=== PATIENT | male | born 1970 | race Caucasian/White ===

== ENCOUNTER 2023-10-27 20:54 | Inpatient (IN) | payer OTHER, SELFPAY ==
[2023-10-27 18:23] VITALS: BP 139/98
[2023-10-27 18:34] VITALS: BP 163/98
--- NOTE | 2023-10-27 18:44 | ED.GENMED ---
History of Present Illness
General
Chief Complaint: Alcohol Problem
Source: patient
Time Seen by Provider: 10/27/23 18:34
History of Present Illness
History of Present Illness:
53yoM with a history of alcohol abuse presenting with his significant other for evaluation of alcohol intoxication. Patient was sober for 1 year up until about a week ago when he started drinking again. He reports drinking a 750ml bottle of vodka
daily for the past week. Last drink was at 2pm this afternoon. He would like to stop drinking. He has a history of withdrawal seizures in the past. He currently reports mild withdrawal symptoms including nausea and a headache. He does not have
health insurance and his significant other did not know what to do so brought him to the ED for evaluation.
Past History
Past History
ED Past Medical History: Psychiatric
ED Past Surgical History: Other (Hernia)
Patient has exhibited threatening behavior?: No
PSI?: No
Social History
Tobacco: Non-smoker
Alcohol: Daily
Drug: None
Personal:
Living: with family
Phy Exam
General Physical Exam
General Presentation: well appearing and no apparent distress
General age: appears stated age
General Skin: warm and dry
General Mental: appears intoxicated
Cardiovascular Exam
Cardiovascular Exam: regular rate/rhythm and no murmur
Pulmonary Exam
Pulmonary Exam: lungs clear, no respiratory distress, no crackles and no wheezing
Gastrointestinal Exam
Gastrointestinal Exam: non tender, soft and non distended
[place] Coma Scale
Eye Opening: Spontaneous
Verbal Response: Oriented
Motor Response: Obeys Commands
GCS Total Score: 15
Skin Exam
Skin Exam: normal color and warm/dry
Scores
Withdrawal Assessment of Alcohol
Withdrawal Assessment Completed?: Yes
Nausea and Vomiting: Mild nausea with no vomiting
Tactile Disturbances: None
Tremor: No tremor
Auditory Disturbances: Not present
Paroxysmal Sweats: No sweat visible
Visual Disturbances: Not present
Anxiety: Mild anxiety
Headache, Fullness in Head: Moderate
Agitation: Moderately fidgety and restless
Orientation and clouding of sensorium: Oriented and can do serial additions
Total CIWA Score: 9
Alcohol Withdrawal Medication Recommendation: Equal to MSAS Score 5-7. Lorazepam 1mg IV or PO NOW & re-assess q2hrs
Course
Orders/Labs/Results
Orders:
Orders
10/27/23 18:40
Electrocardiogram (*1) Urgent
Reason for Study: Other
Other Reason for Exam: Alcohol intoxication
Cardiac Monitoring- Treatment ONCE
EKG- Treatment ONCE
0.9% Sodium Chloride 1000 ml [Nss] 1,000 ml IV BOLUS
10/27/23 18:44
Alcohol Urgent
Complete Blood Count/With Diff Urgent
Comprehensive Metabolic Panel Urgent
Magnesium Urgent
10/27/23 19:54
Lorazepam [Ativan] 2 mg IV NOW STA
10/27/23 20:23
Lorazepam [Ativan] 2 mg IV NOW STA
10/27/23 20:41
Admit/Transfer Patient As Directed
Co-Sign Provider:
Level of Care: Inpatient admission
Assign to:: Telemetry
Physician / Group: [email or web address]
Diagnosis: Agitation, acute ETOH intoxication, Hi risk for ETOH WDS,acute ETOH hepati
Reason for Telemetry: Other
Other Reason for Telemetry: Hi risk for ETOH WDS
Date to Stop Telemetry: 10/29/23
Time to Stop Telemetry: 11:00
Reason for Hospitalization: Agitation, acute ETOH intoxication, Hi risk for ETOH WDS,acute ETOH hepatitis
Expected length of stay greater than two midnights?: Yes
ELOS- Estimated Length of Stay in days: 3
I certify the patient meets the requirements for IP care: Yes
10/29/23 11:00
DC Protocol for Telemetry ONCE
Abnormal Lab Results
10/27/23
18:44
Hgb 18.1 H g/dL
(13.0-18.0)
MCH 32.5 H pg
(27.0-31.0)
MCHC 38.1 H g/dL
(33.0-37.0)
Immature Gran % 0.6 H %
(0-0.5)
Chloride 96 L mmol/L
(98-107)
Glucose 121 H mg/dl
(70-99)
AST 127 H U/L
(17-59)
ALT 62 H U/L
(0-50)
Albumin 5.1 H g/dl
(3.5-5.0)
10/27/23 18:44
10/27/23 18:44
Vital Signs
Initial and Last Documented VS:
Initial Vital Signs
Temp Pulse Resp BP Pulse Ox
98.6 F 111 18 139/98 93
10/27/23 18:23 10/27/23 18:23 10/27/23 18:23 10/27/23 18:23 10/27/23 18:23
Last Documented Vital Signs
Temp Pulse Resp BP Pulse Ox
98.6 F 81 22 155/92 94
10/27/23 18:23 10/27/23 19:15 10/27/23 19:15 10/27/23 19:00 10/27/23 19:00
MDM/Problems Addressed
Differential Diagnosis Includes:
53yoM here for an alcohol issue. Has been drinking heavily x 1 week. Last drink 2pm this afternoon. Hx of withdrawal seizures. He is clinically intoxicated during initial exam. He is afebrile and hemodynamically stable. Differential diagnosis
includes but is not limited to: alcohol withdrawal, alcohol intoxication, dehydration, electrolyte abnormality
Initial ED plan: Check CBC, CMP, magnesium, ETOH, and EKG. IV fluid bolus.
*EKG
Interpreted by ED Provider?: Yes
EKG Intrepretation Date: 10/27/23
EKG Intrepretation Time: 19:22
Heart Rate: 87
Rate: normal
Rhythm: sinus
Polaris: normal axis
Interval: normal interval
QRS Pattern: normal QRS
Ischemia: no ischemia
*Critical Care Note
Total Time (30-74mins, 75-104mins- exclusive of procedures): Not Applicable
Update Note
Update Note:
ETOH level is 354. Mild transaminitis present. Remainder of labs unremarkable. EKG shows NSR without ischemic changes. Patient required IV Ativan for agitation. Will admit for further management given history of withdrawal seizures.
ED Attending Note
-
Portions of this chart may have been created with voice recognition software.� Occasional wrong word or��sound alike� substitutions may have occurred due to the inherent limitations of voice recognition software.
Discharge Plan
Departure
Patient Disposition: Admit
Date of Disposition: 10/27/23
Time of Disposition: 20:13
Presentation/result/management discussed w/ accepting MD/DO: Hospitalist
Discharge Problem:
Alcohol withdrawal
Interventions
Interventions:
*General Assessment Last Done: 10/27/23 18:23
ED- Fall Risk Assessment Last Done: 10/27/23 19:24
*ED COVID-19 Vaccine History Last Done: 10/27/23 18:23
ED- Neurological Assessment Last Done: 10/27/23 19:24
ED-Psychological Assessment Last Done: 10/27/23 19:24
[2023-10-27] MEDS: NSS 1000 IV ×2 (18:52→23:36)
[2023-10-27 19:00] VITALS: BP 155/92
[2023-10-27 19:08] LABS: ALT (SGPT) 62 U/L (0-50); AST (SGOT) 127 U/L (17-59); Albumin 5.1 g/dl (3.5-5.0); Alkaline Phosphatase 106 U/L (38-126); Blood Urea Nitrogen 11 mg/dl (9-20); Calcium 9.1 mg/dl (8.4-10.2); Carbon Dioxide 28 mmol/L (22-30); Chloride 96 mmol/L (98-107); Glucose 121 mg/dl (70-99); Magnesium 1.9 mg/dl (1.6-2.3); Potassium 3.9 mmol/L (3.5-5.1); Sodium 139 mmol/L (135-145); Total Bilirubin 1.3 mg/dl (0.2-1.3); Total Protein 8.1 g/dl (6.3-8.2); eGFR > 60.00
[2023-10-27 19:18] LABS: Alcohol 354 mg/dl
[2023-10-27] MEDS: ATIVAN 2 MG IV ×3 (19:59→21:13)
[2023-10-27 20:20] LABS: % Basophils 0.4 % (0-2); % Eosinophils 0.1 % (0-6); % Immature Granulocytes 0.6 % (0-0.5); % Lymphocytes 40.6 % (20.5-51.1); % Monocytes 6.1 % (1.7-9.3); % Neutrophils 52.2 % (42.2-75.2); Absolute Lymphocytes 2.9 10^3/uL (1.2-3.4); Absolute Monocytes 0.4 10^3/uL (0.1-0.6); Absolute Neutrophils 3.8 10^3/uL (1.4-6.5); Hematocrit 47.5 % (39.0-52.0); Hemoglobin 18.1 g/dL (13.0-18.0); Mean Corp Hgb Conc. 38.1 g/dL (33.0-37.0); Mean Corpuscular Hgb 32.5 pg (27.0-31.0); Mean Corpuscular Volume 85.3 fL (80.0-94.0); Mean Platelet Volume 9.5 fL (7.4-10.4); Nucleated Red Blood Cells % 0 % (-); Platelet Count 193 10^3/uL (130-400); Red Blood Cell Count 5.57 10^6/uL (4.70-6.10); Red Cell Dist. Width 12.8 % (11.5-14.5); White Blood Cell Count 7.2 10^3/uL (4.8-10.8)
--- NOTE | 2023-10-27 20:37 | HPS.HSE ---
Family Physician
-
Family Physician:
Chief Complaint
-
agitation and nausea
History of Present Illness
53M HX severe ETOH use disorder, HX ETOH hepatitis seen at ER for evalaution for agitation , N and [place];
Agitation and Nausea
- acute onset following binge ETOH 750ml bottle of vodka/day for the past week.
- reportedly sober for 1 year prior to this
- VSS stable
- HX withdrawal seizures. Vitals stable
- ETOH is 354
- Received IV Ativan 1 mg at ER for agitation
Medical History
Past Medical History
Past Medical History: Reports Other
Additional Past Medical History:
Severe alcohol abuse.
HX Substance abuse.
HX alcoholic pancreatitis.
HX Hypomagnesemia secondary to alcohol abuse.
Past Surgical History: Reports Other
Social History
Tobacco: Non-smoker
Alcohol: Binge drinker
Drug: Former User
Living: With Family
Family History
Family History: Not pertinent
Allergies / Home Medications
Allergies reflects when Allergies were last updated in [employer].
Home Medications with original date entered in [employer]
Allergy/Medication List:
Allergies
Allergy/AdvReac Type Severity Reaction Status Date / Time
Penicillins Allergy Unknown Hives Verified 10/27/23 18:26
ciprofloxacin Allergy Throat Verified 10/27/23 18:26
closed
Home Medications
No Meds [No Current Medications] 10/27/23
Review of Systems
-
Constitutional: Reports See HPI
EENT: Reports No Symptoms
Respiratory: Reports No Symptoms
Cardiac: Reports No Symptoms
Abdomen/GI: Reports Nausea
: Reports No Symptoms
Musculoskeletal: Reports No Symptoms
Skin: Reports No Symptoms
Neurological: Reports No Symptoms
Endocrine: Reports No Symptoms
Hematologic/Lymphatic: Reports No Symptoms
Psych: Reports No Symptoms
Physical Exam
Vital Signs
Vital Signs
Temp Pulse Resp BP Pulse Ox
98.6 F 81 22 155/92 94
10/27/23 18:23 10/27/23 19:15 10/27/23 19:15 10/27/23 19:00 10/27/23 19:00
Physical Exam
General: Well Developed, Well Nourished and Conversant (sounds drunk , approraiely interactive )
HEENT: NormoCephalic, Anicteric, Moist mucous membranes and Atraumatic
Respiratory: Clear; No Wheezes, Rales or Rhonchi
Cardiac: S1/S2 and Regular Rhythm; No Tachycardia
Breast: Deferred by me
GI: Soft, Non Tender and Non Distended
Genito-urinary: Deferred by me
Musculoskeletal: No Edema
Skin: Warm
Neuro: Awake, Alert and AO x 3
Psych: Calm (restless but easily directable )
Laboratory Results
-
10/27/23 18:44
10/27/23 18:44
Laboratory Results
Total Bilirubin 1.3 mg/dl (0.2-1.3) 10/27/23 18:44
AST 127 U/L (17-59) H 10/27/23 18:44
ALT 62 U/L (0-50) H 10/27/23 18:44
Alkaline Phosphatase 106 U/L (38-126) 10/27/23 18:44
Data Reviewed
-
Medical Tests (Nuc Med, Echo, EKG etc): Report Reviewed by me
Lab Data: Labs Reviewed by me
Old Records: Reviewed
Impression/Plan
-
Reviewed VS: Afebrile HR80 BP155/90 RR22 POx94 %
Data
Hgb 18.1
nl Plt
Cl 96
nl Cr nl eGFR
BG 121
AST 127
ALT 62
Alb 5.1
ETOH 354
EKG report
NORMAL SINUS RHYTHM
NORMAL ECG
WHEN COMPARED WITH ECG OF 07-NOV-2021 18:10,
PREMATURE SUPRAVENTRICULAR COMPLEXES ARE NO LONGER PRESENT
11/08/21 EGD
Normal esophagus. Gastritis. Duodenitis. Normal second portion of duodenum. No active upper GI bleeding.
Last hospitalist admission: 11/07/21 - 11/10/21
PRIMARY DIAGNOSIS:
1. Hematemesis and melena secondary to alcohol gastritis and duodenitis.
2. Thrombocytopenia likely in the setting of alcohol abuse.
3. Elevated lipase secondary to alcoholic pancreatitis.
4. Hypomagnesemia secondary to alcohol abuse.
5. Severe alcohol abuse.
6. Substance abuse.
7. Dehydration.
8. Hiccups.
ASSESSMENT & PLAN
Acute ETOH intoxication
Agitation DDX: likely due to ETOH Intoxication by hi risk for ETOH WDS
Hi risk for ETOH WDS/ DTs
HX severe ETOH use disorder
- MSAS protocol for hi risk WD syndrome
- Supportive care with IVF ,Thiamine
- if any worsening of acute behavior dysfunction with sympathetic hyperarousal feature, to have low threshold to start Phenobarb protocol
- Psych consult
Reversed ALT : AST ratio - significant for acute ETOH hepatitis
- cessation of ETOH
- trend LFTs
DVT Px: SCD
Code: Full
IP TLM
--- NOTE | 2023-10-27 21:30 | PTCARENOTE ---
@2130;Received pt from ED,on tele and accompanied by significant other.Pt is lethargic,confused,speech slow,oriented to self only,attempting to get OOB and swinging both legs off the side of bed.Pt' S.O. stated,' I have to go,I've been with him
since 0900.I'll be back in the morning'. Pt would cat nap for 1 minute, then wake up and try to get OOB. [employer] Josiah,notified via phone call, for the need of nursing 1:1 for pt safety.Pt placed on nursing 1:1 for risk to fall.
[2023-10-27 21:39] VITALS: BP 140/98
[2023-10-27 21:41] VITALS: BMI 22.8
[2023-10-27 22:10] LABS: GGTP 100 U/L (15-73); Magnesium 1.9 mg/dl (1.6-2.3); Phosphorus 1.7 mg/dl (2.5-4.5)
[2023-10-27 22:19] LABS: APTT 26.3 Sec (23.4-35.0); INR 1.09; PT 13.9 Sec (11.4-14.6)
[2023-10-27 22:54] LABS: Glucose - Point of Care 94 mg/dl (70-99)
[2023-10-27] MEDS: THIAMINE INJECTION 200 MG IV (23:37)
[2023-10-28] VITALS (13 sets, daily range): BP systolic 127–159; BP diastolic 80–103
[2023-10-28 02:59] LABS: Glucose - Point of Care 79 mg/dl (70-99)
--- NOTE | 2023-10-28 03:35 | PTCARENOTE ---
@0330;Pt woke up and voided 600ml of yellow urine.UA and UDS sent to lab.Pt remains lethargic,speech slow but is oriented to place and self.Pt stated,'I want to leave now'. Instructed pt on need to stay in the hospital due to safety with his
alcohol level being elevated.Pt agreed.Pt hungry and ate 1/2 sandwich w/240ml of apple juice. No tremors noted at present.Pt requested lights out and wanted to go to bed.
[2023-10-28 03:42] LABS: Urine Albumin Negative (Neg - Trace); Urine Bilirubin Negative (Negative); Urine Character Clear (Clear); Urine Color Yellow; Urine Glucose Negative (Negative); Urine Ketone 2+ (Negative); Urine Leukocyte Negative (Negative); Urine Nitrite Negative (Negative); Urine Occult Blood Negative (Negative); Urine Specific Gravity 1.005 (<1.030); Urine Urobilinogen Negative (Neg - 1+); Urine pH 6.5 (5.0-9.0)
[2023-10-28 04:04] LABS: Amphetamines Negative (Negative); Barbiturates Negative (Negative); Benzodiazepines Positive (Negative); Buprenorphine Negative (Negative); Cocaine Negative (Negative); Marijuana Negative (Negative); Methadone Negative (Negative); Methamphetamines Negative (Negative); Opiates Negative (Negative); Phencyclidine Negative (Negative); Tricyclic Antidepressants Negative (Negative)
[2023-10-28 04:33] LABS: Fentanyl, Urine Negative (Negative)
[2023-10-28] MEDS: ATIVAN 1 MG PO ×4 (05:30→17:30)
[2023-10-28 08:11] LABS: Glucose - Point of Care 135 mg/dl (70-99)
--- NOTE | 2023-10-28 08:35 | W.PN.HOSP.TC ---
Today's Communication/Plan
-
see bold
Assessment / Plan
Assessment / Plan
HPI: 53 yo male with PMH of EtOH abuse, GI bleed in setting of prior EtOH, FH HOCM (brother) admitted with ETOH abuse/intoxication and high risk for withdraw. He had been sober for one year and recently relapsed
#New onset rapid atrial fibrillation
EKG confirms rapid atrial fibrillation with a heart rate in the 160s�170s
Give metoprolol 5 mg IV stat, Cardizem 10 mg IV stat, start Cardizem bolus
Consult cardiology, transferred to IMU
#Alcohol use disorder with intoxication, dependency, withdrawal
Alcohol cessation counseling has been provided
MSAS protocol, thiamine, folic acid
#Headache
Limit Tylenol due to elevated LFTs
Limit ibuprofen use due to history of gastritis induced bleeding
Fioricet as needed
#Alcoholic hepatitis
Limit Tylenol use, trend LFTs
#Hypophosphatemia
Replete by IV and p.o., repeat a.m. lab
DVT prophylaxis�SCDs
Full code
Critical care time 32 minutes
Physical Exam
General: No acute distress
HEENT: Normocephalic, Atraumatic, EOMI, MMM
Respiratory: Clear to Auscultation bilaterally
Cardiac: Normal S1/S2, irregular rhythm, tachycardic rate
GI: Soft, Nontender, Nondistended, Normal Bowel Sounds
Extremities: No Clubbing, Cyanosis, or Edema
Neuro: Nonfocal/Grossly Intact
Psych: Appears anxious
Derm: No Visible lesions
Anticipated Discharge: 24 - 48 hours
Subjective/Interval History
-
Date of Service: October 28, 2023
Patient complained of headache and palpitations. She was found to have rapid atrial fibrillation, heart rate in the 160s�170s. No nausea, no vomiting. No hand tremors.
Objective Data
-
Labs:
Laboratory Results
10/27/23
21:50
PT 13.9
INR 1.09
APTT 26.3
Vital Signs:
Vital Signs
Temp Pulse Resp BP Pulse Ox
98.5 F 87 18 133/85 92
10/28/23 05:20 10/28/23 05:20 10/28/23 03:05 10/28/23 03:05 10/28/23 03:05
I&O
10/27/23 10/28/23 10/29/23
06:59 06:59 06:59
Intake Total 1840 / 1840
Output Total 1100 / 1100
Balance 740 / 740
[2023-10-28] MEDS: THIAMINE INJECTION 200 MG IV ×3 (08:37→23:52)
[2023-10-28] MEDS: FOLVITE 1 MG PO (08:37)
[2023-10-28 09:25] LABS: Glucose - Point of Care 191 mg/dl (70-99)
[2023-10-28] MEDS: LOPRESSOR 5 MG IV (09:26)
[2023-10-28] MEDS: CARDIZEM 10 MG IV (09:39)
[2023-10-28] MEDS: CARDIZEM 125 IV ×2 (09:53→18:53)
[2023-10-28 10:11] LABS: Troponin I < 0.012 ng/ml
[2023-10-28] MEDS: SODIUM PHOSPHATE 255 MEQ IV (10:56)
[2023-10-28] MEDS: NSS 1000 IV (10:56)
--- NOTE | 2023-10-28 11:03 | PTCARENOTE ---
Patient was in NSR at beginning of shift and then HR went to 140-180's. Dr. Zuñiga was at bedside rounding and an EKG was performed. Pt was in a-fib RVR on monitor, blood pressures were consistently 150's/80's. Rapid response was called and order placed
for IMU transfer. Patient given 5mg metop IV and 10mg Cardizem IV, then Cardizem gtt initiated. Pt transferred to IMU with RN/PCT.
Pt's S.O. updated by RN via phone. His MSAS this am was 5, 1mg PO Ativan given per MSAS protocol.
[2023-10-28] MEDS: NEUTRA-PHOS POWDER PACKET PO (11:04)
--- NOTE | 2023-10-28 11:22 | PTCARENOTE ---
Pt received from 3W via bed. Aox3, extremely anxious re current situation, emotional support provided. Afib on monitor with rates to the 150's, pt reports feeling irregular heartbeat. Cardizem gtt titrated per orders. Shortly after arrival pt
converted to NSR/ST. Dr. Nash at bedside and aware of conversion; no EKG needed per MD.
--- NOTE | 2023-10-28 11:24 | W.PN.UPDATE ---
Update Note
Progress Note Update
Pt is 53 yo male with history of alcohol use d/o, hx of alcohol withdrawal seizure, admitted with alcohol level 354 on 10/26. Pt states he was sober for a year, recently relapsed. Pt on MSAS, received Ativan x 2 today thus far. Pt alert, oriented,
calm, cooperative, with no signs of severe withdrawal or psychosis. Pt declined full Psychiatry consult, states he has a therapist, plans to return to AA meetings. Pt denies hx of DT's. Of note, pt is prescribed Ambien 10 mg HS at home, which can
add to withdrawal risk.
Imp: Alcohol Use d/o, severe. Risk for withdrawal seizure given history
Rec: continue alcohol/benzo withdrawal precautions, consider Phenobarb protocol if w/d symptoms increase
Will follow peripherally
--- NOTE | 2023-10-28 11:49 | CON.CAR ---
Consultation
Consultation Request
Date/Time Consultation Requested: 10/28/23, 930am
Date/Time Consultation Performed: 10/28/23, 1030am
Requesting Provider: Do
Performing Provider: Charity
Reason for Consultation: New A fib with RVR
Medical History
-
Chief Complaint: palps
History of Present Illness:
53 yo male with PMH of EtOH abuse, GI bleed in setting of prior EtOH, LEXIS (brother) admitted with ETOH abuse/intoxication and high risk for withdraw. He had been sober for one year and recently relapsed.
We are consulted for new A fib with RVR. He feels palps. No CP, SOB, edema, dizziness, syncope.
Past Medical History
Past Medical History: Other (GI bleed; EtOH abuse)
Past Surgical History: Other (hernia repair)
Social History
Tobacco: Non-Smoker
Alcohol: Chronic Alcoholic
Family History
Family History: Other (brother [facility] LEXIS)
Allergies / Home Medications
Allergy/AdvReac Type Severity Reaction Status Date / Time
ciprofloxacin Allergy Throat Verified 10/27/23 18:26
closed
Penicillins Allergy Hives Verified 10/27/23 21:27
�Medication �Instructions �Recorded �Confirmed �Type
zolpidem 10 mg tablet (Ambien) 10 mg PO 10/28/23 History
Physical Exam
Vital Signs
Temp Pulse Resp BP Pulse Ox
98.6 F 98 22 148/103 91
10/28/23 10:45 10/28/23 11:30 10/28/23 11:30 10/28/23 10:45 10/28/23 11:30
Lab Results
Troponin I < 0.012 ng/ml 10/28/23 09:39
Physical Exam
General: Well Developed and Well Nourished
HEENT: Normocephalic and Anicteric
Respiratory: Clear and Non Labored Respirations
Cardiac: S1/S2 (normal), Irregular Rhythm (tachy), Murmur (none) and JVD (none)
GI: Soft, Non Tender and Non Distended
Musculoskeletal: No Clubbing, No Cyanosis and No Edema
Skin: Warm and Dry
Neuro: AO x 3
Psych: Calm
Impression / Plan
-
53 yo male with PMH of EtOH abuse, GI bleed in setting of prior EtOH, HOCM (brother) admitted with ETOH abuse/intoxication and high risk for withdraw. He had been sober for one year and recently relapsed.
We are consulted for new A fib with RVR.
# A fib with RVR
-new, symptomatic
-start diltiazem drip: requires monitoring of tele
-CHADS2-VASC =0. No OAC at this time
-echo this admission
-he is committed to becoming sober again
# EtOH abuse/withdraw
-per hospitalist
Data Reviewed
-
EKG: Tracing Personally Visualized and interpreted (A fib with RVR)
Labs: Labs Reviewed by me
[2023-10-28 11:59] LABS: Glucose - Point of Care 139 mg/dl (70-99)
[2023-10-28 12:42] LABS: ALT (SGPT) 71 U/L (0-50); AST (SGOT) 147 U/L (17-59); Alkaline Phosphatase 113 U/L (38-126); Blood Urea Nitrogen 8 mg/dl (9-20); Calcium 9.1 mg/dl (8.4-10.2); Carbon Dioxide 26 mmol/L (22-30); Chloride 98 mmol/L (98-107); Estimated Creatinine Clearance > 125 ml/min; Glucose 142 mg/dl (70-99); Magnesium 1.6 mg/dl (1.6-2.3); Potassium 3.6 mmol/L (3.5-5.1); Sodium 140 mmol/L (135-145); Total Bilirubin 1.6 mg/dl (0.2-1.3); eGFR > 60.00
[2023-10-28 12:52] LABS: Troponin I < 0.012 ng/ml
[2023-10-28 12:53] LABS: Hemoglobin 17.8 g/dL (13.0-18.0); Mean Corp Hgb Conc. 37.1 g/dL (33.0-37.0); Mean Corpuscular Hgb 32.4 pg (27.0-31.0); Mean Corpuscular Volume 87.4 fL (80.0-94.0); Platelet Count 171 10^3/uL (130-400); Red Blood Cell Count 5.49 10^6/uL (4.70-6.10); Red Cell Dist. Width 12.1 % (11.5-14.5); White Blood Cell Count 6.1 10^3/uL (4.8-10.8)
[2023-10-28] MEDS: NEUTRA-PHOS POWDER PACKET 500 MG PO ×3 (13:03→20:31)
[2023-10-28] MEDS: POTASSIUM PHOSPHATE 259.0909 MEQ IV (15:27)
--- NOTE | 2023-10-28 15:59 | PTCARENOTE ---
Pt requesting information on potentially signing out AMA. Pt asking what risks of leaving are, and 'what percent chance will I if I leave?' Dr. Zuñiga notified via TT who then spoke with pt via phone. Pt agreeable to stay at this time.
--- NOTE | 2023-10-28 16:02 | CM ---
met with patient at bedside.he lives alone in [facility] [address] with [address] ma[address],his bed and bath is on the 3rd level,he amb i and is i with his adl.his brother lillian is poa and he has no pcp.he uses [facility] in [place].[facility] has been to [facility] for 30 days in 2019.patient states he has been off alcohol for 1 year but did just relapse.he has declined cares for counseling and resources.he attends weekly counseling thrrough a therapist at [facility].he will take and uber home.
[2023-10-28 16:29] LABS: Glucose - Point of Care 126 mg/dl (70-99)
[2023-10-28] MEDS: AMBIEN 10 MG PO (20:31)
[2023-10-28 21:43] LABS: Glucose - Point of Care 115 mg/dl (70-99)
[2023-10-29] VITALS: BP 128/82
[2023-10-29] MEDS: TYLENOL 650 MG PO (00:28)
[2023-10-29 00:59] VITALS: BP 116/83
[2023-10-29 02:00] VITALS: BP 128/81
--- NOTE | 2023-10-29 02:44 | PTCARENOTE ---
HR in the 50's BP 128/81. Cardizem gtt at 10ml/hr decreased to 5ml/hr with HR in the 70's. Alicia CHATMAN TT'd and made aware. Will continue to monitor pt on Cardizem gtt at 5ml/hr and will notify her if HR sustains in the 60's.
[2023-10-29 04:00] VITALS: BP 122/81
[2023-10-29] MEDS: NSS 1000 IV (04:44)
[2023-10-29] MEDS: NSS IV (04:46)
[2023-10-29 05:26] LABS: ALT (SGPT) 70 U/L (0-50); AST (SGOT) 128 U/L (17-59); Albumin 4.2 g/dl (3.5-5.0); Alkaline Phosphatase 104 U/L (38-126); Blood Urea Nitrogen 8 mg/dl (9-20); Calcium 9.4 mg/dl (8.4-10.2); Carbon Dioxide 30 mmol/L (22-30); Chloride 99 mmol/L (98-107); Estimated Creatinine Clearance > 125 ml/min; Glucose 118 mg/dl (70-99); Phosphorus 3.9 mg/dl (2.5-4.5); Potassium 3.2 mmol/L (3.5-5.1); Sodium 135 mmol/L (135-145); Total Bilirubin 1.9 mg/dl (0.2-1.3); eGFR > 60.00
[2023-10-29 05:57] LABS: TSH Reflex To Free T4 4.12 uIU/ml (0.47-4.68)
[2023-10-29 06:14] VITALS: BP 134/90
[2023-10-29] MEDS: THIAMINE INJECTION 200 MG IV (08:09)
[2023-10-29 08:10] LABS: Glucose - Point of Care 115 mg/dl (70-99)
[2023-10-29] MEDS: NEUTRA-PHOS POWDER PACKET 500 MG PO (08:10)
[2023-10-29] MEDS: FOLVITE 1 MG PO (08:10)
--- NOTE | 2023-10-29 08:30 | PTCARENOTE ---
Pt AAOx3 anxious to leave asking for Doctor to see hm. Melissa gtt off pt in SR with Hr at 58 . NSS at 80hr continues. Pt is impulsive and repeats himself. RA at 97% lungs are clear . Dr Zuñiga TT re k 3.2 updated on melissa gtt being off also that pt
wants to leave.
--- NOTE | 2023-10-29 09:05 | PTCARENOTE ---
Pt continues to be impulsive states he is leaving in one hour if not seen by MD. Attempts to talk with pt in re to staying not received well.
[2023-10-29] MEDS: KCL 40 MEQ PO (09:49)
--- NOTE | 2023-10-29 09:59 | PTCARENOTE ---
Pt spoke to DR Zuñiga on the phone. Decided to leave . Read AMA form and refused to sign. Pt encouraged not to leave . Prt instructed to call his Dr on Monday to follow up on his health issues. Stated he was calling an [employer] once he was outside.
--- NOTE | 2023-10-29 10:12 | W.PN.UPDATE ---
Update Note
Progress Note Update
Patient left AGAINST MEDICAL ADVICE prior to being seen. He refused to sign his AGAINST MEDICAL ADVICE form.
--- NOTE | 2023-10-29 10:13 | W.DCSUMMARY ---
Discharge Summary
Discharge Data
Date of Admission: 10/27/23
Date of Discharge: 10/29/23
-
Pending Results: No
Hospital Course
Discharge diagnosis:
New onset rapid atrial fibrillation
Alcohol use disorder with intoxication, dependency, withdrawal
Headache
Alcoholic hepatitis
Hypophosphatemia
Hypokalemia
Consults: Cardiology, psychiatry
Hospital course:
53-year-old male with a past medical history of alcohol abuse disorder, dependency, alcohol withdrawal seizure, and GI bleed was admitted for acute alcohol withdrawal, nausea, and headache. Patient presented with an alcohol level of 354 on
10/27/2023. He reports being sober for a year, then relapsed.
Patient was seen in conjunction with psychiatry. He was monitored for alcohol withdrawal, and received thiamine, folic acid, and Ativan as needed.
Patient's hospital course was complicated by new onset rapid atrial fibrillation. His heart rate was as high as 175. Patient was seen in conjunction with cardiology. He was treated with IV metoprolol, IV Cardizem bolus, followed by IV Cardizem
drip. His heart rate became controlled, and his drip was discontinued.
Patient had hypophosphatemia, this was repleted and resolved. Patient had hypokalemia, this was repleted.
On the morning of 10/29/2023, patient was adamant against leaving AGAINST MEDICAL ADVICE. Risks/benefits were discussed with the patient, but he insisted on leaving. He refused to sign his AMA form.
Disposition: AGAINST MEDICAL ADVICE
Discharge Plan
-
Patient Disposition: Against Medical Advice
Referrals:
Lewis Camacho MD [Family Provider] -
Prescriptions:
No Action
zolpidem [Ambien] 10 mg Tablet
10 mg PO
Rx Instructions:
HS
Discharge Date and Time
Discharge Date/Time: 10/29/23 09:55
Print Language: URDU
== END 2023-10-29 09:55 | disposition left against medical advice (07) | DRG 894 ==
LOC: IMU 20:54
PROVIDERS: Physician Assistant; ADMITTING PHYSICIAN Internal Medicine; ATTENDING PHYSICIAN Family Medicine; CONSULT PHYSICIAN Internal Medicine; EMERGENCY PHYSICIAN Emergency Medicine; FAMILY PHYSICIAN Family Medicine
DX: F10.220 Alcohol dependence with intoxication, uncomplicated (principal); Z53.29 Procedure and treatment not carried out because of patient's decision for other reasons; F10.230 Alcohol dependence with withdrawal, uncomplicated; K70.10 Alcoholic hepatitis without ascites; I48.91 Unspecified atrial fibrillation; E83.39 Other disorders of phosphorus metabolism; D69.59 Other secondary thrombocytopenia; E86.0 Dehydration; E87.6 Hypokalemia; Y90.8 Blood alcohol level of 240 mg/100 ml or more; Z59.7 Insufficient social insurance and welfare support; Z88.0 Allergy status to penicillin; Z88.1 Allergy status to other antibiotic agents
CPT/HCPCS: 80053; 80306; 80307; 81003; 82077; 82962; 82977; 83735; 84100; 84443; 84484; 85025; 85027; 85610; 85730; 93005; 96374; 96376; 99284

== ENCOUNTER 2024-03-21 05:00 | Emergency (ER) | payer OTHER, SELFPAY ==
[2024-03-21 05:02] VITALS: BP 147/98
--- NOTE | 2024-03-21 07:22 | ED.GENMED ---
History of Present Illness
General
Chief Complaint: Alcohol Problem
Source: patient
Time Seen by Provider: 03/21/24 07:05
History of Present Illness
History of Present Illness:
53-year-old male with past medical history of alcohol abuse presenting to the emergency department for evaluation of of 'feeling bad' from suspected alcohol withdrawal. Patient not elaborating any further on symptoms just continues to state he
feels bad. Patient denies any nausea or vomiting but does admit to feeling tremulous. Notes a history of previous alcohol withdrawal seizures. Denies fevers or infectious symptoms. Denies any other substance use. Did not take any medications
prior to arrival. He reports his last drink was at least 24 hours ago.
Past History
Past History
ED Past Medical History: Psychiatric
ED Past Surgical History: Other (Hernia)
Patient has exhibited threatening behavior?: No
PSI?: No
Social History
Tobacco: Non-smoker
Alcohol: Chronic alcoholic
Drug: None
Personal:
Living: with family
Review of Systems
Review of Systems
All Other Systems: ROS reviewed and negative except as documented in HPI and ROS
Phy Exam
Physical Exam
Physical Exam:
GENERAL: Alert , in no apparent distress
HEAD: small 1cm superficial abrasion mid forehead
EYE: pupils equal and reactive, clear conjunctiva
NECK: Supple, no midline ttp
ENT: o/p clr, mmm.
CARDIAC: Regular rate and rhythm .
LUNGS: Clear breath sounds bilaterally, no acute respiratory distress, no wheezes/rales/rhonchi
ABDOMEN: Soft, without focal tenderness, no r/g, no cvat
NEUROLOGICAL: Alert and oriented, no focal neuro deficits, ambulating with steady gait, atremulous
SKIN: Warm and dry, skin intact.
MUSCULOSKELETAL: well perfused.
PSYCH: Normal and appropriate interaction.
Scores
Heart Failure Risk
Heart Failure Risk Score: Not Applicable
Heart Score for Chest Pain Patients
STEMI patient?: Not applicable
Withdrawal Assessment of Alcohol
Withdrawal Assessment Completed?: Yes
Nausea and Vomiting: No nausea and no vomiting
Tactile Disturbances: None
Tremor: Not visible, but can be felt fingertip to fingertip
Auditory Disturbances: Not present
Paroxysmal Sweats: No sweat visible
Visual Disturbances: Not present
Anxiety: Mild anxiety
Headache, Fullness in Head: Not present
Agitation: Normal activity
Orientation and clouding of sensorium: Oriented and can do serial additions
Total CIWA Score: 2
Alcohol Withdrawal Medication Recommendation: Equal to MSAS Score 0-4. Monitor & re-assess q2hrs, NO MEDICATION NEEDED
Course
Orders/Labs/Results
Orders:
Orders
03/21/24 07:13
CT Head W/o Iv Contrast Urgent
Comment:
Reason For Exam: fall, head injury, intoxicated
Lorazepam [Ativan] 1 mg PO NOW STA
Vital Signs
Initial and Last Documented VS:
Initial Vital Signs
Temp Pulse Resp BP Pulse Ox
98.1 F 97 18 147/98 98
03/21/24 05:02 03/21/24 05:02 03/21/24 05:02 03/21/24 05:02 03/21/24 05:02
Last Documented Vital Signs
Temp Pulse Resp BP Pulse Ox
98.1 F 65 18 146/92 95
03/21/24 05:02 03/21/24 09:17 03/21/24 09:17 03/21/24 09:17 03/21/24 09:17
MDM/Problems Addressed
Differential Diagnosis Includes:
Alcohol abuse without any current signs of withdrawal, no current signs to suggest DTs, patient not exhibiting any signs of dehydration
MDM/Problems Addressed:
53-year-old male presenting to the emergency department for evaluation for what he reports to be suspected alcohol withdrawal. Last drink greater than 24 hours ago. MSAS score of 2, and patient was observed ambulating throughout the ER without any
difficulty. He does have an abrasion on the forehead and reports an accidental fall yesterday while intoxicated. Will order head CT to further evaluate. Patient requesting IV fluids and Ativan. At this time patient is not exhibiting any overt
signs of dehydration and is able to tolerate p.o. so we will continue p.o. fluids for now. Will also order p.o. Ativan for patient's anxiety however do not feel patient needs any IV medications at this time. I did offer [facility] but patient declines
and states he has been to rehab previously and if needs to has the information available to him.
Chronic conditions affecting care: Psychiatric illness (Alcohol abuse)
Acute Exacerbation and/or Progression of Chronic Illness: Psychiatric illness (Alcohol abuse)
*Radiology
Radiology exam reviewed: radiology read reviewed
*Pulse Oximetry
Patient hypoxic: no
*Critical Care Note
Total Time (30-74mins, 75-104mins- exclusive of procedures): Not Applicable
Data Reviewed
Review of Other/Old Records Reveals: Labs and Records
Source: patient
Patient Management
Escalation/DeEscalation of care consider admission/obs:
Patient had CT without any acute pathologies. Patient continues to not exhibit any signs of acute alcohol withdrawal. He is ambulatory with steady gait. Patient arranged for [employer] to take him home. Again offered rehab and other services for
patient's alcohol addiction but he continues to decline. Aware of return precautions to the ER
ED Attending Note
-
Portions of this chart may have been created with voice recognition software.� Occasional wrong word or��sound alike� substitutions may have occurred due to the inherent limitations of voice recognition software.
Discharge Plan
Departure
Patient Disposition: Home (Routine Discharge)
Date of Disposition: 03/21/24
Time of Disposition: 09:03
Patient with high blood pressure during this ER visit?: Yes
Discharge Problem:
Alcohol abuse, Accidental fall, Minor head injury
Instructions: Alcohol Use Disorder (DC)
Prescriptions:
No Action
zolpidem [Ambien] 10 mg Tablet
10 mg PO HSPRN PRN (Reason: sleep)
Referrals:
Lewis Camacho MD [Family Provider] -
Interventions
Interventions:
*Risk Screen - Suicide Last Done: 03/21/24 05:07
*General Assessment Last Done: 03/21/24 05:07
*Neglect/Abuse Screening Last Done: 03/21/24 05:07
ED- Fall Risk Assessment Last Done: 03/21/24 07:54
*ED COVID-19 Vaccine History Last Done: 03/21/24 07:54
*Nursing Disposition Last Done: 03/21/24 09:17
ED- Neurological Assessment Last Done: 03/21/24 06:00
ED-Psychological Assessment Last Done: 03/21/24 06:00
Discharge Date and Time
Discharge Date/Time: 03/21/24 09:15
Print Language: SERBIAN
[2024-03-21 07:55] VITALS: BP 145/91
[2024-03-21] MEDS: ATIVAN 1 MG PO (07:56)
--- NOTE | 2024-03-21 09:16 | EDRN ---
Discharge instructions given to patient by Dave Faith PA-C
[2024-03-21 09:17] VITALS: BP 146/92
== END 2024-03-21 09:15 | disposition home or self-care (01) ==
LOC: EMR 05:00
PROVIDERS: EMERGENCY PHYSICIAN Student in an Organized Health Care Education/Training Program; FAMILY PHYSICIAN Family Medicine
DX: F10.10 Alcohol abuse, uncomplicated (principal); S09.90XA Unspecified injury of head, initial encounter; S00.81XA Abrasion of other part of head, initial encounter; W19.XXXA Unspecified fall, initial encounter; F41.9 Anxiety disorder, unspecified
CPT/HCPCS: 99284; 70450